=== PATIENT | male | born 1945 | race Caucasian/White ===

== ENCOUNTER 2021-06-17 07:36 | Inpatient (IN) | payer MEDICARE, MEDICAID ==
[2021-06-11 11:49] LABS: ALBUMIN 3.5 G/DL (3.4-5.0); ALBUMIN/GLOBULIN RATIO 0.9 (1.1-1.5); ALKALINE PHOSPHATASE 111 IU/L (46-116); BLOOD UREA NITROGEN 19 MG/DL (7-18); CALCIUM 9.1 MG/DL (8.5-10.1); CHLORIDE 108 MMOL/L (99-107); PRE OP ALT 27 U/L (30-65); PRE OP ANION GAP 6 (8-16); PRE OP AST 17 U/L (10-37); PRE OP BILIRUB, TOTAL 0.4 MG/DL (0.0-1.0); PRE OP GLUCOSE 87 MG/DL (70-104); PRE OP POTASSIUM 4.5 MMOL/L (3.4-5.1); PRE OP PROTIME 10.2 SECONDS (9.0-12.0); PRE OP SODIUM 143 MMOL/L (135-145); TOTAL CARBON DIOXIDE 28.7 MMOL/L (24-32); TOTAL PROTEIN 7.4 G/DL (6.4-8.2); eGFR 73 ML/MIN
[2021-06-11 12:00] LABS: BASOPHILS # (AUTO) 0.1 X10'3 (0-0.2); BASOPHILS % (AUTO) 1.3 % (0-1); EOSINOPHILS # (AUTO) 0.1 X10'3 (0-0.9); EOSINOPHILS % (AUTO) 1.9 % (0-6); LYMPHOCYTES # (AUTO) 1.9 X10'3 (1.1-4.8); LYMPHOCYTES % (AUTO) 24.3 % (21-51); MEAN CORPUSCULAR HEMOGLOBIN 30.4 PG (27.0-31.0); MEAN CORPUSCULAR HGB CONC 34.2 g/dL (33.0-36.5); MEAN CORPUSCULAR VOLUME 88.8 FL (78-98); MEAN PLATELET VOLUME 9.4 FL (7.4-10.4); MONOCYTES # (AUTO) 0.5 X10'3 (0-0.9); NEUTROPHILS # (AUTO) 5.2 X10'3 (1.8-7.7); NEUTROPHILS % (AUTO) 66.5 % (42-75); PRE OP HEMATOCRIT 44.8 % (42.0-52.0); PRE OP HEMOGLOBIN 15.3 g/dL (14.0-17.9); PRE OP PLATELET COUNT 211 X10'3 (140-440); RED BLOOD COUNT 5.04 X10'6 (4.70-6.10); RED CELL DISTRIBUTION WIDTH 13.2 % (11.5-14.5)
[~2021-06-17] VITALS: Ht 180.3 cm; Wt 89.0 kg
[2021-06-17] VITALS (18 sets, daily range): BP systolic 110–162; BP diastolic 63–88
[~2021-06-17 07:36] MED LIST: ASPI81TA52 PO; ATOR10TA70 PO; ERGO400C PO; FISH OIL; LOSA50TA64 PO; MULT-1085 PO; clindamycin-Cleocin 900mg/D5W 50 ML IV ONE; famotidine 20mg tablet PO ONE; ringers solution, lacted 1,000 ML IV SCH; tranexamic acid inj. 1,000 MG in 0.7% saline 100 ML PMX IV ONE; vancomycin 1,500 MG in NS 300ml IV soln IV ONE
[2021-06-17] MEDS ORDERED: ringers solution, lacted 1,000 ML IV SCH (09:05)
[2021-06-17] MEDS ORDERED: meperidine/PF 25mg/ml syringe IV PRN ×3 (09:05)
[2021-06-17] MEDS ORDERED: ondansetron/PF 4mg/2ml inj IV PRN ×2 (09:05→13:10)
[2021-06-17] MEDS ORDERED: proCHLORperazine 10 MG/2 ml inj IV PRN (09:05)
[2021-06-17] MEDS ORDERED: KETOROLAC TROMETH IU ONE ×5 (10:00)
[2021-06-17] MEDS ORDERED: EPINEPHRINE IU ONE ×5 (10:00)
[2021-06-17] MEDS ORDERED: ROPIVACAINE IU ONE ×5 (10:00)
[2021-06-17] MEDS ORDERED: [UNRECOGNIZED DRUG - OTHER] IU ONE ×5 (10:00)
[2021-06-17] MEDS ORDERED: MIDAZolam 1mg/ml 10ml vial ONE (10:43)
[2021-06-17] MEDS ORDERED: fentaNYL/PF 50MCG/1 ML 2ML syringe ONE (10:43)
[2021-06-17] MEDS ORDERED: ROPIVAcaine 0.5% (5mg/ml) 30ml vial ONE (10:50)
[2021-06-17] MEDS ORDERED: vancomycin 1,000mg inj ONE (11:25)
[2021-06-17] MEDS ORDERED: Thrombin (Bovine) 5,000 unit vial TP ONE (11:25)
[2021-06-17] MEDS ORDERED: ROPIVAcaine 0.2% (10 MG/5 ML) BOLUS INJECTION INTERSCALE PRN (13:05)
[2021-06-17] MEDS ORDERED: oxyCODONE IR 5mg (immed. release) tablet PO PRN ×2 (13:10)
[2021-06-17] MEDS ORDERED: HYDROmorphone 1 mg/ml syringe IV PRN (13:10)
[2021-06-17] MEDS ORDERED: magnesium hydroxide 30ml (MOM) UD suspension PO PRN (13:10)
[2021-06-17] MEDS ORDERED: HYDROmorphone inj. 0.5 MG/0.5 ML DISP.SYRIN IV PRN (13:10)
[2021-06-17] MEDS ORDERED: bisacodyl 10mg suppository rectal RC PRN (13:10)
[2021-06-17] MEDS ORDERED: acetaminophen 325mg tablet PO PRN (13:10)
[2021-06-17] MEDS ORDERED: diphenhydrAMINE 25mg capsule PO PRN ×2 (13:10)
--- NOTE | 2021-06-17 13:27 | NUR ---
Received from OR via BED, 1V 18G, KNEE WRAP, POWER PACK, DSG CDI, PT DENIES PAIN. SENSATION L3-L4, BILAT SCDS ON,+ BOUNDING L DP PULSE. accompanied by Anesthesiologist and report given by DORINDA Anesthesiolgist. Addendum: 06/17/21 at 1349 by Yvonne Reese RN Amended: Links added.
[2021-06-17] MEDS ORDERED: ROPIVAcaine 0.2%/PF PUMP/bolus 545 ML INTERSCALE SCH (13:45)
--- NOTE | 2021-06-17 14:43 | NUR ---
Received from OR via BED, 20G IV TO RIGHT HAND, WOUND VAC TO LEFT SHOULDER WITH 20ML BLOODY DRAINAGE, DSG CDI, +LEFT RADIAL PULSE, PT DENIES PAIN, accompanied by Anesthesiologist DORINDA and report given by DORINDA Anesthesiolgist.
--- NOTE | 2021-06-17 16:00 | NUR ---
Problems reprioritized. Patient report given, questions answered & plan of care reviewed with NEIL LI.
--- NOTE | 2021-06-17 16:00 | NUR ---
Patient in room [facility]. I have received report from NEIL LI and had the opportunity to ask questions and assume patient care.
[2021-06-17] MEDS: acetaminophen 325mg tablet PO SCH ×2 (16:21→19:31)
[2021-06-17] MEDS: potassium cl 20mEq in 1/2 NS 1,000 ML IV SCH (16:24)
[2021-06-17] MEDS ORDERED: tranexamic acid 1gm/0.7% sal. 100 ML IV ONE (17:00)
--- NOTE | 2021-06-17 18:20 | NUR ---
Problems reprioritized. Patient report given, questions answered & plan of care reviewed with Sola LI.
[2021-06-17] MEDS ORDERED: vancomycin/NS 1 GM ADD-VANTAGE 250 ML IV SCH (20:00)
[2021-06-17] MEDS: gabapentin 300mg capsule PO SCH (20:52)
[2021-06-17] MEDS ORDERED: atorvastatin 10mg tablet PO SCH (21:00)
[2021-06-17] MEDS ORDERED: sennosides 8.6mg tablet PO SCH (21:00)
[2021-06-18 00:21] VITALS: BP 125/61
[2021-06-18] MEDS: acetaminophen 325mg tablet PO SCH ×2 (01:56→08:00)
[2021-06-18] MEDS: potassium cl 20mEq in 1/2 NS 1,000 ML IV SCH ×2 (02:28→06:48)
[2021-06-18 06:07] LABS: BASOPHILS # (AUTO) 0.1 X10'3 (0-0.2); BASOPHILS % (AUTO) 0.3 % (0-1); EOSINOPHILS % (AUTO) 0 % (0-6); HEMATOCRIT 39.6 % (42.0-52.0); HEMOGLOBIN 13.3 g/dl (14.0-17.9); LYMPHOCYTES % (AUTO) 6.2 % (21-51); MEAN CORPUSCULAR HEMOGLOBIN 30.1 PG (27.0-31.0); MEAN CORPUSCULAR HGB CONC 33.7 g/dL (33.0-36.5); MEAN CORPUSCULAR VOLUME 89.3 FL (78-98); MEAN PLATELET VOLUME 9.9 FL (7.4-10.4); MONOCYTES # (AUTO) 0.8 X10'3 (0-0.9); MONOCYTES % (AUTO) 4.9 % (2-12); NEUTROPHILS # (AUTO) 14.1 X10'3 (1.8-7.7); NEUTROPHILS % (AUTO) 88.6 % (42-75); PLATELET COUNT 178 X10'3 (140-440); RED BLOOD COUNT 4.44 X10'6 (4.70-6.10); RED CELL DISTRIBUTION WIDTH 13.2 % (11.5-14.5); WHITE BLOOD COUNT 15.9 X10'3 (4.5-11.0)
--- NOTE | 2021-06-18 06:25 | NUR ---
Problems reprioritized. Patient report given, questions answered & plan of care reviewed with JEN Huitron.
[2021-06-18 06:31] LABS: ANION GAP 10 (8-16); CHLORIDE 109 MMOL/L (99-107); POTASSIUM 4.9 MMOL/L (3.5-5.1); SODIUM 141 MMOL/L (135-145); TOTAL CARBON DIOXIDE 22.1 MMOL/L (24-32)
[2021-06-18 07:00] VITALS: BP 134/71
[2021-06-18 07:22] VITALS: BP_SYST 135
[2021-06-18] MEDS: gabapentin 300mg capsule PO SCH (07:23)
[2021-06-18] MEDS ORDERED: losartan 50mg tablet PO SCH (08:00)
[2021-06-18] MEDS ORDERED: aspirin 81mg, enteric-coated 1 TAB TABLET.DR PO SCH (08:00)
[2021-06-18] MEDS ORDERED: enoxaparin 40mg/0.4ml syringe SQ SCH (08:00)
[2021-06-18] MEDS ORDERED: cholecalciferol (vitamin D3) 1,000 unit (25mcg) tablet PO SCH (08:00)
[2021-06-18] MEDS ORDERED: multivitamins, therapeutics tablet PO SCH (08:00)
[2021-06-18] MEDS ORDERED: HYDROcodone/acetaminophen 5mg/325mg tablet PO ONE (11:25)
--- NOTE | 2021-06-18 12:40 | NUR ---
Patient stable and appropriate for discharge home. IV removed, all belongings taken from room. New prescriptions already picked up and waiting at home. All discharge instructions and education given and reviewed with patient, all questions answered. patient sent home with OnQ pump intact and both ice packs.
[2021-06-18] MEDS ORDERED: celeCOXIB 100mg capsule PO SCH (20:00)
[2021-06-19] MEDS ORDERED: acetaminophen 325mg tablet PO PRN (13:10)
== END 2021-06-18 12:46 | disposition home or self-care (01) | DRG 470 ==
LOC: PAS IN 07:36 → UNDOADMIN 07:36 → EDSTATUS 10:00 → PAS IN 13:12 → SUR 3N 15:30
PROVIDERS: ADMIT Orthopaedic Surgery; ATTEND Orthopaedic Surgery
PROC: 3E0T3BZ Introduction of Anesthetic Agent into Peripheral Nerves and Plexi, Percutaneous Approach (ICD-10-PCS; 2021-06-17)
PROC: 3E0T33Z Introduction of Anti-inflammatory into Peripheral Nerves and Plexi, Percutaneous Approach (ICD-10-PCS; 2021-06-17)
PROC: 0SRD0J9 Replacement of Left Knee Joint with Synthetic Substitute, Cemented, Open Approach (ICD-10-PCS; principal; 2021-06-17 10:40)
DX: M17.12 Unilateral primary osteoarthritis, left knee (principal); D62 Acute posthemorrhagic anemia; I10 Essential (primary) hypertension; N40.0 Benign prostatic hyperplasia without lower urinary tract symptoms; Z88.0 Allergy status to penicillin; Z79.899 Other long term (current) drug therapy; Z79.82 Long term (current) use of aspirin
CPT/HCPCS: 36415; 73560; 80051; 80053; 82948; 85025; 85610; 85730; 87081; 97110; 97161; 97530; A4215; A7000; C1713; C1776; G0378; J1650; J2250; J2795; J3010; J3370; J3480; J7040; J7120; U0003; U0005